=== PATIENT | male | born 1955 | race Caucasian/White ===

== ENCOUNTER 2025-05-21 11:11 | Inpatient (IN) | payer MEDICARE, OTHER ==
[~2025-05-21] VITALS: Ht 175.3 cm; Wt 60.8 kg
[2025-05-21] MEDS ORDERED: SENN187 PO (11:27)
[2025-05-21] MEDS ORDERED: Aspir 8181 MG PO (11:27)
[2025-05-21] MEDS ORDERED: TAMS.4ER PO (11:27)
[2025-05-21] MEDS ORDERED: BISA10S (11:28)
[2025-05-21] MEDS ORDERED: CefTRIAXone Sodium 1,000 MG in NS 100 ML IV ONE (12:45)
[2025-05-21 13:05] LABS: Source, Urine Foley catheter
[2025-05-21 13:08] LABS: Bilirubin, Urine Neg (Neg); Color, Urine Yellow (P-Yellow); Glucose Qualitative, Urine Neg (Neg); Ketones, Urine Neg (Neg); Leukocyte Esterase, Urine 3+ (Neg); Protein, Urine 3+ (Neg); Specific Gravity, Urine 1.010 (1.003-1.022); Urobilinogen, Urine NORM (Normal)
[2025-05-21] MEDS ORDERED: NS 1,000 ML IV SCH ×2 (13:20→16:45)
[2025-05-21 13:44] LABS: White Blood Cells, Urine 50-100 /hpf (0-5)
[2025-05-21 14:00] LABS: BASOPHILS ABSOLUTE AUTO 0.06 K/mm3 (0.00-0.23); BASOPHILS PERCENT AUTO 0 % (0-2); EOSINOPHILS ABSOLUTE AUTO 0.01 K/mm3 (0.00-0.68); EOSINOPHILS PERCENT AUTO 0 % (0-6); Hematocrit 39.0 % (37.0-53.0); Hemoglobin 12.3 g/dL (13.5-17.5); IMMATURE GRAN ABSOLUTE AUTO 0.08 K/mm3 (0.00-0.10); IMMATURE GRAN PERCENT AUTO 0 % (0-1); LYMPHOCYTES ABSOLUTE AUTO 0.35 K/mm3 (0.84-5.20); LYMPHOCYTES PERCENT AUTO 2 % (21-46); MONOCYTES ABSOLUTE AUTO 0.82 K/mm3 (0.16-1.47); MONOCYTES PERCENT AUTO 4 % (4-13); Mean Corpuscular HGB Conc 31.5 g/dL (31.5-36.5); Mean Corpuscular Volume 93 fL (80-100); NEUTROPHILS ABSOLUTE AUTO 19.84 K/mm3 (1.96-9.15); NEUTROPHILS PERCENT AUTO 94 % (41-73); NRBC ABSOLUTE 0.00 K/mm3 (0.00-0.02); NRBC Auto 0.0 /100 WBC (0.0-0.2); Platelet Count 420 K/mm3 (150-400); RDW Coefficient Variation 14.5 % (11.7-14.2); RDW Standard Deviation 49.9 fL (35.1-46.3)
[2025-05-21 14:09] LABS: Alanine Aminotransfer (ALT/SGP 20.0 U/L (12-78); Albumin, Blood 3.0 g/dL (3.4-5.0); Albumin/Globulin Ratio 0.8 (0.8-1.8); Anion Gap 11.0 mmol/L (3-11); Aspartate Aminotrans (AST/SGOT 13.0 U/L (12-37); Bilirubin, Total 1.0 mg/dL (0.1-1.0); Blood Urea Nitrogen 33.0 mg/dL (8-24); CO2, Blood 23.0 mmol/L (21-32); Calcium, Blood 9.1 mg/dL (8.5-10.1); Chloride, Blood 108.0 mmol/L (98-108); Creatinine, Blood 0.82 mg/dL (0.60-1.20); Globulin, Blood 3.6 g/dL (2.2-4.0); Glucose, Blood 119.0 mg/dL (70-99); Potassium, Blood 4.4 mmol/L (3.5-5.5); Sodium, Blood 138.0 mmol/L (136-145); Total Protein, Blood 6.6 g/dL (6.4-8.2)
[2025-05-21] MEDS ORDERED: Polyethylene Glycol 3350 17 gm PO PRN (14:35)
[2025-05-21] MEDS ORDERED: FLU VACC TS2025(65UP)/MF59C/PF 45 MCG/0.5 ML SYRINGE IM SCH (14:35)
[2025-05-21 19:02] VITALS: BP 117/83
[2025-05-21 19:10] VITALS: BP 117/83
--- NOTE | 2025-05-21 19:11 | NUR ---
admit note- pt arrived on medical floor at shift change. Pt has pyuria in the gardner with dark yellow urine. Pt has an elevated temp 99.9 and resp rate is 32 (he denies sob) pt has a moist productive weak cough, coarse crackles bilaterally in the upper, some wheezes noted on the anterior chest. O2 sats 91% on room air. denies Hx of asthma or COPD not noted in H&P to have these either. Called [facility], pt has not had a respiratory panel or chest XR that this RN can find in the chart. pt also has a runny nose. Saji will review and place orders.
[2025-05-21] MEDS ORDERED: Albuterol 2.5 MG/3 ML VIAL INH PRN (19:20)
[2025-05-21 19:32] LABS: pH Blood Venous 7.40 (7.34-7.37)
[2025-05-21] MEDS ORDERED: Ketorolac Tromethamine 30mg Vial IV ONE (20:00)
[2025-05-21 20:28] VITALS: BP 107/72
[2025-05-21 20:43] LABS: Influenza A, PCR NEGATIVE (NEGATIVE); Influenza B, PCR NEGATIVE (NEGATIVE); Resp Syncytial Virus, PCR NEGATIVE (NEGATIVE); SARS-Cov-2 (COVID-19) PCR, MMC NEGATIVE (NEGATIVE)
[2025-05-21] MEDS ORDERED: Lactobacil 2-S.Thermo-Bifido 1 1 Cap PO SCH (21:00)
[2025-05-21] MEDS ORDERED: Docusate Sodium/Senna 1 Tab PO SCH (21:00)
--- NOTE | 2025-05-21 22:18 | NUR ---
PT HAS BEEN REFUSING CARE T/O SHIFT. PT EDUCATING ON CARE TRYING TO BE PROVIDED AND PT GETS IMPULSIVE AND TELLS YOU TO LEAVE HIS ROOM. PT REFUSED SKIN CHECK DURING ADMISSION ASSESSMENT, THE SKIN THAT WAS VISIBLE WAS ASSESSED (ARMS, HANDS, BACK, CHEST, AND FACE).
[2025-05-22 04:22] VITALS: BP 95/61
[2025-05-22 05:53] LABS: Hematocrit 31.7 % (37.0-53.0); Hemoglobin 10.5 g/dL (13.5-17.5); Mean Corpuscular HGB Conc 33.1 g/dL (31.5-36.5); Mean Corpuscular Volume 96 fL (80-100); NRBC ABSOLUTE 0.00 K/mm3 (0.00-0.02); NRBC Auto 0.0 /100 WBC (0.0-0.2); Platelet Count 369 K/mm3 (150-400); RDW Coefficient Variation 14.6 % (11.7-14.2); RDW Standard Deviation 49.2 fL (35.1-46.3)
--- NOTE | 2025-05-22 06:11 | NUR ---
SHIFT SUMMARY PT IS A&OX3, UNAWARE OF DATE, MONTH, DAY OF WEEK. PT REQUIRED A LOT OF EDUCATION AND SUPPORT WHEN ATTEMPTING TO PROVIDE CARE. PT REFUSED CARE T/O SHIFT, AND ASKED WHY REGARDLESS OF EDUCATION. PT WOULD THEN STATE YOU NEED TO LEAVE , WHEN CARE WAS ATTEMPTED. PT DOES HAVE A LEE CATHETER IN PLACE THAT IS DRAINING MISAEL URINE TO GRAVITY. PT RESTED T/O SHIFT WITH EVEN AND UNLABORED RESPIRATIONS, BED IN THE LOWEST POSITION, AND CALL LIGHT WITHIN REACH.
[2025-05-22 06:53] LABS: Albumin, Blood 2.4 g/dL (3.4-5.0); Anion Gap 8 mmol/L (3-11); Blood Urea Nitrogen 24 mg/dL (8-24); CO2, Blood 24 mmol/L (21-32); Calcium, Blood 8.4 mg/dL (8.5-10.1); Chloride, Blood 110 mmol/L (98-108); Creatinine, Blood 0.66 mg/dL (0.60-1.20); Glucose, Blood 106 mg/dL (70-99); Magnesium, Blood 2.0 mg/dL (1.6-2.4); Phosphorus, Blood 3.6 mg/dL (2.5-4.9); Potassium, Blood 3.7 mmol/L (3.5-5.5); Sodium, Blood 138 mmol/L (136-145)
[2025-05-22 07:31] VITALS: BP 116/79
[2025-05-22] MEDS ORDERED: CefTRIAXone Sodium 1,000 MG in NS 100 ML IV SCH (09:00)
[2025-05-22] MEDS ORDERED: Cholecalciferol 1000 Unit Tablet (=25MCG) PO SCH (09:00)
[2025-05-22] MEDS ORDERED: Enoxaparin 40 MG/0.4 ML SYR SC SCH (09:00)
[2025-05-22 15:03] VITALS: BP 117/78
--- NOTE | 2025-05-22 17:22 | NUR ---
SHIFT SUMMARY: A&Ox4, PT REFUSED SEVERAL ASSESSMENTS DURING THIS SHIFT, PROVIDED EDUCATION STILL DECLINED. PT STATING MULTIPLE TIMES TO LEAVE THE ROOM. DID ALLOW THIS RN TO PLACE [facility] ON [place] AFTER ENCOURGEMENT AND EDUCATION. PT DOES HAVE LEE CATHETER IN PLACE WITH MISAEL COLORED URINE DRAINING. GAVE MEDICATION PER EMAR, BED IN THE LOWEST POSITION, AND CALL LIGHT WITHIN REACH.
--- NOTE | 2025-05-22 18:29 | NUR ---
PALLIATIVE CARE CONSULT: CONSULT RECEIVED FOR AD/POLST, ADVANCED CARE PLANNING AND INFECTION. REVIEWED MEDICAL RECORD. PT ADMITTED WITH SEPSIS DUE TO UTI, NO POLST OR ADVANCE DIRECTIVE FOUND ON FILE OR WITH [facility]. PT IS CURRENTLY A DNR.
--- NOTE | 2025-05-23 04:10 | NUR ---
SHIFT SUMMARY ADMITTED FOR UTI/SEPSIS. DNR CODE. IV ANTIB RX ARE SCHEDULED. PT WILL DC BACK TO [facility] ON 05/29/25. LEE IN PLACE FOR RETENTION. NS INFUSING ORDERED. ON RA. A&O X3?, REFUSING MEDS AND CARE THIS SHIFT. ADA DIET. 2 ASSIST W/FWW & GB TO BSC. ACHS CBG'S, PATIENT REFUSED GLUCOSE TESTING. THIS PATIENT HAS AN APPOINTED GUARDIAN.
[2025-05-23 05:00] VITALS: BP 128/81
[2025-05-23 07:30] VITALS: BP 133/85
[2025-05-23 07:54] LABS: Hematocrit 29.2 % (37.0-53.0); Hemoglobin 10.0 g/dL (13.5-17.5); Mean Corpuscular HGB Conc 34.2 g/dL (31.5-36.5); Mean Corpuscular Volume 97 fL (80-100); NRBC ABSOLUTE 0.00 K/mm3 (0.00-0.02); NRBC Auto 0.0 /100 WBC (0.0-0.2); Platelet Count 342 K/mm3 (150-400); RDW Coefficient Variation 15.1 % (11.7-14.2); RDW Standard Deviation 48.5 fL (35.1-46.3)
[2025-05-23 08:33] LABS: Albumin, Blood 2.4 g/dL (3.4-5.0); Anion Gap 6 mmol/L (3-11); Blood Urea Nitrogen 9 mg/dL (8-24); CO2, Blood 24 mmol/L (21-32); Calcium, Blood 8.0 mg/dL (8.5-10.1); Chloride, Blood 109 mmol/L (98-108); Creatinine, Blood 0.50 mg/dL (0.60-1.20); Glucose, Blood 103 mg/dL (70-99); Magnesium, Blood 1.8 mg/dL (1.6-2.4); Phosphorus, Blood 4.0 mg/dL (2.5-4.9); Potassium, Blood 3.7 mmol/L (3.5-5.5); Sodium, Blood 135 mmol/L (136-145)
[2025-05-23 17:07] VITALS: BP 128/80
--- NOTE | 2025-05-23 17:26 | NUR ---
SHIFT SUMMARY PT AOX3-4, LABILE AT TIMES. REFUSES CARE AT TIMES BUT WITH SOME EDUCATION, MAY COMPLY. NO ACUTE COMPLAINTS. REPOSITIONED THROUGHOUT THE SHIFT. LEE IN PATENT AND DRAINING. WILL CALL AND MAKE HIS NEEDS KNOWN. PLAN IS TO RETURN TO [facility] AFTER IV ABX ON 05/29. CALL LIGHT WITHIN REACH, BED LOCKED AND IN THE LOWEST POSITION. WILL REPORT TO ONCOMING NURSE.
--- NOTE | 2025-05-24 03:53 | NUR ---
SHIFT SUMMARY ADMITTED FOR UTI/SEPSIS. DNR CODE. HE LIVES AT [facility] AND WILL RETURN THEIR AT [place]. IV ANTIB RX ARE SCHEDULED. NS INFUSING ORDERED. LEE IN PLACE FOR RETENTION. ADA DIET. ON RA. REFUSES CARE FREQUENTLY. REFUSES MEDS, LABS, ASSESSMENTS FREQUENTLY. HX OF COGNITIVE DISORDER.
[2025-05-24 05:08] VITALS: BP 120/84
[2025-05-24 07:30] VITALS: BP 119/81
[2025-05-24] MEDS ORDERED: CEFTRIAXON1 GM/50 M1 IV (12:20)
[2025-05-24] MEDS ORDERED: Acetaminophen650 M1 PO (12:20)
[2025-05-24] MEDS ORDERED: TAMS.4ER PO (12:21)
--- NOTE | 2025-05-24 15:07 | NUR ---
DISCHARGE NOTE PT DISCHARGED TO [facility], PICKED UP BY TRANSPORT. PG TO [facility] INTACT, REPORT GIVEN TO NURSE AT [facility]. PERSONAL BELONGINGS RETURNED. TRANSPORT PACKET PROVIDED TO TRANSPORTER. NO ACUTE PRIOR TO DISCHARGE.
== END 2025-05-24 15:00 | DRG 872 ==
LOC: ER 11:11 → MEDS 14:29
PROVIDERS: Nurse Practitioner Acute Care; Physician Assistant; ADMIT Internal Medicine
DX: A41.59 Other Gram-negative sepsis (principal); N39.0 Urinary tract infection, site not specified; E46 Unspecified protein-calorie malnutrition; Z68.1 Body mass index [BMI] 19.9 or less, adult; Z66 Do not resuscitate; F10.10 Alcohol abuse, uncomplicated; I48.91 Unspecified atrial fibrillation; E11.9 Type 2 diabetes mellitus without complications; N40.1 Benign prostatic hyperplasia with lower urinary tract symptoms; R33.8 Other retention of urine; R54 Age-related physical debility; R41.89 Other symptoms and signs involving cognitive functions and awareness; B96.4 Proteus (mirabilis) (morganii) as the cause of diseases classified elsewhere; Z79.899 Other long term (current) drug therapy; Z79.82 Long term (current) use of aspirin
CPT/HCPCS: 36415; 51702; 71045; 80053; 80069; 81001; 82803; 82947; 83605; 83735; 83880; 85025; 85027; 87040; 87077; 87086; 87186; 87637; 94760; 96365-59; 99284-25; A9270; C1751; J0696; J1650; J1885; J7030